=== PATIENT | male | born 1965 | race Caucasian/White ===

== ENCOUNTER 2024-10-22 17:12 | Emergency (ER) | payer BC ==
[2024-10-22] MEDS ORDERED: dexAMETHasone 10 MG/ML VIAL ONE (18:37)
[2024-10-22] MEDS ORDERED: KETOROLAC 30 MG/ML INJ ONE (18:37)
[2024-10-22] MEDS ORDERED: METOCLOPRAMIDE 10 MG/2mL INJ ONE (18:38)
[2024-10-22] MEDS ORDERED: DIPHENHYDRAMINE 50 MG/ML VIAL ONE (18:38)
[2024-10-22] MEDS ORDERED: NA CHLORIDE 0.9% 1,000 ML ONE (18:39)
[2024-10-22 19:44] LABS: Absolute Eosinophils 0.1 K/uL (0-0.5); Absolute Lymphocytes (CBC) 1.2 K/uL (0.7-4.9); Absolute Monocytes 0.4 K/uL (0.1-1.3); Absolute Neutrophil 5.7 K/uL (1.8-8.0); Basophils % 0.4 % (0-1.3); Eosinophils % 1.1 % (0-4.4); Hematocrit 36.5 % (39.6-49.0); Hemoglobin 12.5 g/dL (13.6-17.9); Lymphocytes % 15.8 % (15.3-44.8); MCH 28.9 pg (27.0-35.0); MCHC 34.3 g/dL (32.0-36.0); MCV 84.2 fL (80-100); MPV 9.2 fL (7.6-11.3); Neutrophils % 76.7 % (41.7-73.7); Platelets 181 thou/uL (152-406); RBC Red Blood Cell Count 4.33 M/uL (4.33-5.43); Red Cell Distribution Width 15.4 % (12.1-15.2)
[2024-10-22 20:03] LABS: Albumin 3.8 g/dL (3.4-5.0); Anion Gap 10.7 mEq/L (5.0-15.0); Bilirubin Total 0.6 mg/dL (0.2-1.0); Globulin 3.7 g/dL (2.3-3.5); Potassium 3.7 mEq/L (3.5-5.1); Protein, Total 7.5 g/dL (6.4-8.2)
--- NOTE | 2024-10-22 20:53 | RAD REPORT ---
EXAMINATION: Abdomen Pelvis Wo Contrast CLINICAL INDICATION: Male, 59 years old.ABD PAIN TECHNIQUE: CT abdomen and pelvis was performed, without IV contrast, as per department protocol. Axia l, sagittal and coronal reconstructions were obtained. One or more of the following dose reduction techniques were used: Automated exposure control, adjustment of the mA and/or kV according to the pat ient size, and/or iterative reconstruction. Unless otherwise specified, incidental findings do not require dedicated imaging follow-up. [id number]. IV CONTRAST: Not administered. COMPARISON: None FINDINGS: The lack of intravenous contrast limits the sensitivity of this exam for evaluation of solid visceral organs, vascular structures, and retroperitoneum. LOWER CHEST: No acute process identified.No significant pericardial effusion. UPPER GI: No significant abnormality. LIVER: No significant focal abnormality. GALLBLADDER/BILE DUCTS: No biliary ductal dilatation.? PANCREAS: No mass, ductal dilation, or clifton-pancreatic fluid. SPLEEN: Unremarkable. ADRENALS: No adrenal masses. KIDNEYS AND URETERS: No hydronephrosis.Limited evaluation for renal lesions in the absence of IV cont rast.No renal calculi.No ureteral calculi. ABDOMINAL AORTA AND OTHER VESSELS: Normal caliber aorta and IVC. PERITONEUM: No abnormal free fluid. No free air. LYMPH NODES: No pathologic lymphadenopathy. ABDOMINAL WALL: Fat containing inguinal hernias. SMALL BOWEL/COLON: Small bowel has normal course and caliber. No colonic wall thickening or pericolon ic inflammatory changes.Normal appendix. Moderate diverticulosis without diverticulitis. URINARY BLADDER: Nonspecific circumferential bladder wall thickening. REPRODUCTIVE ORGANS: No pathologic process. MUSCULOSKELETAL: Grade 2 anterolisthesis of L5 on S1 with pars defects. Remote L1 and L2 compression fractures. ADDITIONAL FINDINGS: None. IMPRESSION: No acute findings within the abdomen or pelvis. No appendicitis.
--- NOTE | 2024-10-22 21:06 | ER ---
Nurse's Notes [facility] Name: Jaswant Khan Age: 59 yrs Sex: Male : 1965 Arrival Date: 10/22/2024 Time: 17:12 Bed 20 Private MD: Diagnosis: Abdominal pain, Generalized;Headache Presentation: 10/22 17:24 Chief complaint: Patient states: Monday started having severe abd pain and migraine iw headache, it got better on Monday and now it is back. c/o mid abd pain, constant , denies n/v/d , possible constipation, last BM was Monday and only a small amount , headache to front and across top of head, constant, previous hx of migraines but very rarely , similar to what he's had in past. Coronavirus screen: At this time, the client does not indicate any symptoms associated with coronavirus-19. Ebola Screen: No symptoms or risks identified at this time. Initial Sepsis Screen: Does the patient meet any 2 criteria? No. Patient's initial sepsis screen is negative. Does the patient have a suspected source of infection? No. Patient's initial sepsis screen is negative. Risk Assessment: Do you want to hurt yourself or someone else? Patient reports no desire to harm self or others. 17:24 Method Of Arrival: Ambulatory iw 17:24 Acuity: SAVANNA 3 iw 20:51 Onset of symptoms was October 20, 2024. kj2 Historical: - Allergies: 17:30 No Known Allergies; iw - Home Meds: 17:30 None [Active]; iw - PMHx: 17:30 None; iw - PSHx: 17:30 None; iw - Immunization history:: Adult Immunizations not up to date. - Infectious Disease History:: Denies. - Social history:: Smoking status: Patient denies any tobacco usage or history of. Patient/guardian denies using alcohol. Screenin:15 [facility] ED Fall Risk Assessment (Adult) History of falling in the last 3 months, kj2 including since admission No falls in past 3 months (0 pts) Confusion or Disorientation No (0 pts) Intoxicated or Sedated No (0 pts) Impaired Gait No (0 pts) Mobility Assist Device Used No (0 pt) Altered Elimination No (0 pt) Score/Fall Risk Level 0 - 2 = Low Risk Maintained a safe environment, Hourly rounding (assess needs \T\ fall precautionary measures) done. Abuse screen: Denies threats or abuse. Denies injuries from another. Nutritional screening: No deficits noted. Tuberculosis screening: No symptoms or risk factors identified. Assessment: 18:15 General: Appears in no apparent distress. Behavior is calm, cooperative. Pain: kj2 Complains of pain in abdominal Pain currently is 7 out of 10 on a pain scale. Neuro: Level of Consciousness is awake, alert. Cardiovascular: Patient's skin is warm and dry. Respiratory: Airway is patent Respiratory effort is unlabored. GI: Reports lower abdominal pain. : No signs and/or symptoms were reported regarding the genitourinary system. 19:15 Reassessment: Patient appears in no apparent distress at this time. Patient and/or kj2 family updated on plan of care and expected duration. Pain level reassessed. Patient is alert, oriented x 3, equal unlabored respirations, skin warm/dry/pink. 20:15 Reassessment: Patient appears in no apparent distress at this time. Patient and/or kj2 family updated on plan of care and expected duration. Pain level reassessed. Patient is alert, oriented x 3, equal unlabored respirations, skin warm/dry/pink. 21:15 Reassessment: Patient appears in no apparent distress at this time. Patient and/or kj2 family updated on plan of care and expected duration. Pain level reassessed. Patient is alert, oriented x 3, equal unlabored respirations, skin warm/dry/pink. 21:16 GI: Bowel sounds present X 4 quads. Abd is non tender X 4 quads. kj2 Vital Signs: 17:24 BP 186 / 96; Pulse 59; Resp 16; Temp 97.6; Pulse Ox 100% on R/A; Weight 63.5 kg; Height iw 5 ft. 8 in. ; Pain 6/10; 18:15 BP 161 / 103; Pulse 102; Resp 20; Pulse Ox 100% ; kj2 20:15 BP 135 / 94; Pulse 57; Resp 20; Pulse Ox 100% on R/A; kj2 21:15 BP 132 / 88; Pulse 60; Resp 20; Temp 98.2; Pulse Ox 100% on R/A; kj2 17:24 Body Mass Index 21.29 (63.50 kg, 172.72 cm) iw 17:24 Pain Scale: Adult iw ED Course: 17:14 Patient arrived in ED. im 17:20 Kiki Adamson FNP-C [facility]. kb 17:20 Santos Anderson MD is Attending Physician. kb 17:29 Triage completed. iw 17:31 Arm band placed on. iw 17:59 Radiology exam delayed due to lab results not completed at this time. (BUN/Creatinine) nj IV insertion attempt and/or patient not having appropriate IV at this time. 18:17 Berta Baker, RN is Primary Nurse. kj2 18:41 Missed attempt(s): 20 gauge in right antecubital area. kj2 18:52 Patient has correct armband on for positive identification. Provided Education on: call kj2 light. 18:56 Radiology exam delayed due to lab results not completed at this time. (BUN/Creatinine) nj IV insertion attempt and/or patient not having appropriate IV at this time. 19:18 Missed attempt(s): 20 gauge Bleeding controlled, band aid applied, catheter tip intact. ty 19:30 Missed attempt(s): 22 gauge Bleeding controlled, band aid applied, catheter tip intact. ty 19:38 Inserted saline lock: 22 gauge in left forearm, using aseptic technique. Blood vc1 collected. Flushed with 10 mL NS. 19:39 CBC with Diff Sent. kj2 19:39 CMP Sent. kj2 19:39 Lipase Sent. kj2 20:32 Abdomen In Process Unspecified. EDMS 21:15 No provider procedures requiring assistance completed. IV discontinued, intact, kj2 bleeding controlled, No redness/swelling at site. Pressure dressing applied. Administered Medications: 19:39 Drug: TORadol - Ketorolac IVP 15 mg IVP once Route: IVP; Site: left forearm; vc1 21:17 Follow up: Response: No adverse reaction kj2 19:39 Drug: diphenhydrAMINE IVP 25 mg IVP once Route: IVP; Site: left forearm; vc1 21:17 Follow up: Response: No adverse reaction kj2 19:39 Drug: metoCLOPramide IVP 10 mg IVP once; over 1 to 2 minutes Route: IVP; Site: left vc1 forearm; 21:16 Follow up: Response: No adverse reaction kj2 19:40 Drug: NS 0.9% IV 1000 ml IV at 1 bolus Per protocol; to be given as a bolus over 60 vc1 minutes Route: IV; Rate: 1 bolus; Site: left wrist; 21:17 Follow up: IV Status: Completed infusion; IV Intake: 1000ml kj2 19:40 Drug: Decadron - Dexamethasone IVP 10 mg IVP once Route: IVP; Site: left forearm; vc1 21:17 Follow up: Response: No adverse reaction kj2 Medication: 18:30 VIS not applicable for this client. kj2 Intake: 21:17 IV: 1000ml; Total: 1000ml. kj2 Outcome: 21:05 Discharge ordered by MD. vo 21:16 Discharged to home ambulatory, kj2 21:16 Condition: stable 21:16 Discharge instructions given to patient, Instructed on discharge instructions, follow up and referral plans. Demonstrated understanding of instructions, follow-up care, 21:21 Patient left the ED. kj2 Signatures: Dispatcher [employer] EDMS Kiki Adamson, HARVEST SUPERVISOR-C HARVEST SUPERVISOR-CkLorraine Shelby RN RN iw Gabriel Baker Vanessa, RN RN vc1 Emily Rodriguez Tylor ty Jordan, Krystal, RN RN kj2
--- NOTE | 2024-10-22 21:06 | EDPHYS ---
Physician Documentation [facility] Name: Jaswant Khan Age: 59 yrs Sex: Male : 1965 Arrival Date: 10/22/2024 Time: 17:12 Bed 20 Private MD: ED Physician Santos Anderson HPI: 10/22 17:58 This 59 yrs old Male presents to ER via Ambulatory with complaints of Abdominal Pain. kb 17:58 Pt is a 59 year old male who presents for diffuse abd pain that started 3 days ago. kb States he had no pain yesterday, but it returned today. Denies n/v/d. Reports possible fever. Also reports migraine that is similar to previous that he has had that started today. . Historical: - Allergies: 17:30 No Known Allergies; iw - Home Meds: 17:30 None [Active]; iw - PMHx: 17:30 None; iw - PSHx: 17:30 None; iw - Immunization history:: Adult Immunizations not up to date. - Infectious Disease History:: Denies. - Social history:: Smoking status: Patient denies any tobacco usage or history of. Patient/guardian denies using alcohol. ROS: 17:58 Constitutional: As per HPI kb Exam: 17:58 Constitutional: This is a well developed, well nourished patient who is awake, alert, kb and in no acute distress. Head/Face: Normocephalic, atraumatic. Eyes: Pupils equal round and reactive to light, extra-ocular motions intact. Lids and lashes normal. Conjunctiva and sclera are non-icteric and not injected. Cornea within normal limits. Periorbital areas with no swelling, redness, or edema. ENT: Moist Mucous membranes Cardiovascular: Regular rate Respiratory: Respirations even and unlabored. No increased work of breathing. Talking in full sentences Abdomen/GI: Soft, non-tender. No distention Skin: Warm, dry with normal turgor. Normal color. MS/ Extremity: Pulses equal, no cyanosis. Neurovascular intact. Full, normal range of motion. Neuro: Awake and alert, GCS 15, oriented to person, place, time, and situation. Vital Signs: 17:24 BP 186 / 96; Pulse 59; Resp 16; Temp 97.6; Pulse Ox 100% on R/A; Weight 63.5 kg; Height iw 5 ft. 8 in. ; Pain 6/10; 18:15 BP 161 / 103; Pulse 102; Resp 20; Pulse Ox 100% ; kj2 20:15 BP 135 / 94; Pulse 57; Resp 20; Pulse Ox 100% on R/A; kj2 21:15 BP 132 / 88; Pulse 60; Resp 20; Temp 98.2; Pulse Ox 100% on R/A; kj2 17:24 Body Mass Index 21.29 (63.50 kg, 172.72 cm) iw 17:24 Pain Scale: Adult iw MDM: 17:20 Medical Screening Exam initiated kb 17:58 Data reviewed: vital signs, nurses notes. kb 21:04 Differential diagnosis: bowel obstruction, diverticulitis, non-specific abd pain, kb constipation, migraine, tension headache. Historians other than the Patient: Spouse/Significant Other: spouse. Counseling: I had a detailed discussion with the patient and/or guardian regarding the historical points, exam findings, and any diagnostic results supporting the discharge/admit diagnosis, lab results, radiology results, the need for outpatient follow up, a family practitioner, to return to the emergency department if symptoms worsen or persist or if there are any questions or concerns that arise at home. Response to treatment: the patient's symptoms have resolved after treatment. 10/22 17:53 Order name: CBC with Diff; Complete Time: 19:46 kb 10/22 17:53 Order name: CMP; Complete Time: 20:11 kb 10/22 17:53 Order name: Lipase; Complete Time: 20:11 kb 10/22 20:21 Order name: Abdomen ; Complete Time: 20:53 EDMS 10/22 17:53 Order name: IV Saline Lock; Complete Time: 19:39 kb 10/22 17:53 Order name: Labs collected and sent; Complete Time: 19:39 kb Administered Medications: 19:39 Drug: TORadol - Ketorolac IVP 15 mg IVP once Route: IVP; Site: left forearm; vc1 21:17 Follow up: Response: No adverse reaction kj2 19:39 Drug: diphenhydrAMINE IVP 25 mg IVP once Route: IVP; Site: left forearm; vc1 21:17 Follow up: Response: No adverse reaction kj2 19:39 Drug: metoCLOPramide IVP 10 mg IVP once; over 1 to 2 minutes Route: IVP; Site: left vc1 forearm; 21:16 Follow up: Response: No adverse reaction kj2 19:40 Drug: NS 0.9% IV 1000 ml IV at 1 bolus Per protocol; to be given as a bolus over 60 vc1 minutes Route: IV; Rate: 1 bolus; Site: left wrist; 21:17 Follow up: IV Status: Completed infusion; IV Intake: 1000ml kj2 19:40 Drug: Decadron - Dexamethasone IVP 10 mg IVP once Route: IVP; Site: left forearm; vc1 21:17 Follow up: Response: No adverse reaction kj2 Disposition Summary: 10/22/24 21:05 Discharge Ordered Notes: Location: Home kb Condition: Stable kb Diagnosis - Abdominal pain, Generalized kb - Headache kb Followup: kb - With: Emergency Department - When: As needed - Reason: Worsening of condition Followup: kb - With: Private Physician - When: 2 - 3 days - Reason: Recheck today's complaints, Continuance of care, Re-evaluation by your physician Discharge Instructions: - Discharge Summary Sheet kb - Abdominal Pain, Adult, [id number] kb - Migraine Headache, [id number] kb Forms: - Medication Reconciliation Form kb - Antibiotic Education kb - Prescription Opioid Use kb - Patient Portal Instructions kb - Leadership Thank You Letter kb Signatures: Dispatcher [employer] EDKiki Cruz, TOURIST ESCORT-C TOURIST ESCORT-Lorraine Aguilera RN RN iw Maryanne Valdes RN RN vc1 Berta Baker RN kj2 Corrections: (The following items were deleted from the chart) 20:21 17:54 Abdomen Pelvis W Con+CT.RAD.BRZ ordered. EDMS EDMS
[2024-10-22 21:26] VITALS: O2SAT 100
[2024-10-22 21:31] VITALS: BP 132/88; TEMP 98.2
== END 2024-10-22 21:21 | disposition home or self-care (01) ==
LOC: ER 17:12
DX: R10.84 Generalized abdominal pain (principal); R51.9 Headache, unspecified
CPT/HCPCS: 96361; 85025; 36415; 83690; 80053; 74176; 96375; 96374; 99284; J2765; J1200; J1100; J7030